=== PATIENT | female | born 1945 | race Caucasian/White ===

== ENCOUNTER 2017-02-01 02:56 | Emergency (ER) | payer MEDICARE ==
[~2017-02-01] VITALS: Ht 172.7 cm; Wt 78.1 kg
[~2017-02-01 02:56] MED LIST: AMLO5TAB2 PO; ATOR40TA78 PO; CLOP75TA22 PO; DOCU-30 PO; FOLI-17 PO; GABA100C8 PO; THIA100T6 PO; TRAM50TA2 PO
[2017-02-01] MEDS ORDERED: SODIUM CHLORIDE 0.9% 1,000 ML IV ONE (03:05)
[2017-02-01] MEDS ORDERED: ALBUTEROL/IPRATROPIUM 2.5MG/0.5MG, 3 ML ONE (03:12)
[2017-02-01] MEDS ORDERED: SODIUM CHLORIDE FLUSH 10ML SYR IVF ONE (03:30)
[2017-02-01] MEDS ORDERED: ALBUTEROL/IPRATROPIUM 2.5MG/0.5MG, 3 ML NPPB ONE (03:30)
[2017-02-01] MEDS ORDERED: methylPREDNISolone SOD SUCC 125 MG/2 ML IVP ONE (03:30)
[2017-02-01 03:33] LABS: ASPARTATE AMINO TRANSFERASE 11 U/L (15-37); BLOOD UREA NITROGEN 15 mg/dL (7-18)
[2017-02-01 03:41] LABS: IS PT STATUS REG ER OR PRE ER? YES
[2017-02-01 05:25] VITALS: BP 120/69
== END 2017-02-01 05:29 | disposition home or self-care (01) ==
LOC: ED 03:57
DX: J44.1 Chronic obstructive pulmonary disease with (acute) exacerbation (principal); R06.00 Dyspnea, unspecified; F17.200 Nicotine dependence, unspecified, uncomplicated; Z72.89 Other problems related to lifestyle; Z86.73 Personal history of transient ischemic attack (TIA), and cerebral infarction without residual deficits
CPT/HCPCS: 36415; 71010; 80053; 80307; 83880; 84484; 85025; 93005; 94640; 99285; J7620

== ENCOUNTER 2017-02-26 22:36 | Emergency (ER) | payer MEDICARE ==
[2017-03-02 10:39] LABS: DIFF TOTAL CELLS COUNTED 100 CELL DIFF
[2017-03-02 11:04] LABS: VERIFY COUNTS? YES
[2017-03-02 11:54] LABS: BLOOD UREA NITROGEN 20 mg/dL (7-18)
== END 2017-02-27 02:00 ==
LOC: ED 22:36
DX: R53.1 Weakness (principal); Z72.9 Problem related to lifestyle, unspecified; Z91.14 Patient's other noncompliance with medication regimen; R94.4 Abnormal results of kidney function studies
CPT/HCPCS: 36415; 80048; 80307; 82040; 85025; 99283; 99284

== ENCOUNTER 2017-03-24 13:36 | Emergency (ER) | payer MEDICARE, OTHER ==
[~2017-03-24] VITALS: Ht 167.6 cm; Wt 78.0 kg
[~2017-03-24 13:36] MED LIST changes: +GABA-826 PO; -GABA100C8 PO
[2017-03-24] MEDS ORDERED: HYDROcodone/APAP 5/325 TABLET ONE (15:27)
[2017-03-24] MEDS ORDERED: HYDROcodone/APAP 5/325 TABLET PO ONE (15:30)
[2017-03-24 15:34] VITALS: BP 130/71
== END 2017-03-24 15:45 | disposition home or self-care (01) ==
LOC: ED 14:17
DX: R07.89 Other chest pain (principal); M54.12 Radiculopathy, cervical region; J44.9 Chronic obstructive pulmonary disease, unspecified; I48.91 Unspecified atrial fibrillation; Z86.73 Personal history of transient ischemic attack (TIA), and cerebral infarction without residual deficits
CPT/HCPCS: 36415; 70450; 84484; 93005; 99285; J7512

== ENCOUNTER 2017-05-06 00:11 | Emergency (ER) | payer MEDICARE, MEDICAID ==
[~2017-05-06] VITALS: Ht 165.1 cm; Wt 80.0 kg
[2017-05-06] MEDS ORDERED: SODIUM CHLORIDE 0.9% 1,000ML IVBOLUS ONE (00:30)
[2017-05-06 01:16] LABS: HEMATOCRIT 34.8 % (34.6-47.8); HEMOGLOBIN 11.4 g/dL (11.7-16.4); WHITE BLOOD COUNT 11.7 x10^3/uL (3.4-10)
[2017-05-06 01:33] LABS: BLOOD UREA NITROGEN 28 mg/dL (7-18)
[2017-05-06 01:37] LABS: ASPARTATE AMINO TRANSFERASE 15 U/L (15-37)
[2017-05-06 01:38] LABS: ACETAMINOPHEN < 2 mcg/mL (10-30)
[2017-05-06 02:12] LABS: DAU SCREEN DISCLAIMER
[2017-05-06 02:21] LABS: PATH.CAST-FLAG NOT PRESENT; SPERM-FLAG NOT PRESENT; SRC-FLAG NOT PRESENT; XTAL-FLAG NOT PRESENT; YLC-FLAG NOT PRESENT
[2017-05-06 03:40] VITALS: BP 142/72
== END 2017-05-06 04:17 | disposition home or self-care (01) ==
LOC: ED 03:39
DX: R40.1 Stupor (principal); N30.00 Acute cystitis without hematuria; F15.10 Other stimulant abuse, uncomplicated; Z72.89 Other problems related to lifestyle; J44.9 Chronic obstructive pulmonary disease, unspecified; Z86.73 Personal history of transient ischemic attack (TIA), and cerebral infarction without residual deficits; Z96.89 Presence of other specified functional implants
CPT/HCPCS: 36415; 70450; 80053; 80307; 80329; 81001; 82140; 85025; 87086; 93005; 96360; 96361; 99285; J7030; G0480

== ENCOUNTER 2017-06-30 22:52 | Emergency (ER) | payer MEDICARE, MEDICAID ==
[~2017-06-30] VITALS: Ht 162.6 cm; Wt 68.0 kg
[~2017-06-30 22:52] MED LIST changes: -CLOP75TA22 PO; +CLOP75TA52 PO; +DOCU-131 PO; -DOCU-30 PO
[2017-07-01 03:39] VITALS: BP 141/60
== END 2017-07-01 03:42 | disposition home or self-care (01) ==
LOC: ED 23:59
DX: Z72.89 Other problems related to lifestyle (principal); J44.9 Chronic obstructive pulmonary disease, unspecified; Z86.73 Personal history of transient ischemic attack (TIA), and cerebral infarction without residual deficits; Z88.0 Allergy status to penicillin; Z88.6 Allergy status to analgesic agent; F17.200 Nicotine dependence, unspecified, uncomplicated
CPT/HCPCS: 93005; 99283

== ENCOUNTER 2017-07-01 05:12 | Emergency (ER) | payer MEDICARE, MEDICAID ==
[~2017-07-01] VITALS: Ht 160 cm; Wt 80.0 kg
[2017-07-01 05:21] VITALS: BP 129/54
== END 2017-07-01 06:07 | disposition home or self-care (01) ==
LOC: ED 05:25
DX: F10.220 Alcohol dependence with intoxication, uncomplicated (principal); Z72.89 Other problems related to lifestyle; F17.200 Nicotine dependence, unspecified, uncomplicated
CPT/HCPCS: 99283

== ENCOUNTER 2017-10-12 12:38 | Emergency (ER) | payer MEDICARE, MEDICAID ==
[2017-10-12] MEDS ORDERED: PLEASE ENTER HEIGHT AND WEIGHT MC SCH (13:30)
[2017-10-12] MEDS ORDERED: ALBUTEROL/IPRATROPIUM 2.5MG/0.5MG, 3 ML NEB ONE (13:30)
[2017-10-12 13:44] LABS: BASOPHILS # (AUTO) 0.04 x10^3/uL (0-0.1); BASOPHILS % (AUTO) 1 % (0-1); EOSINOPHILS # (AUTO) 0.15 x10^3/uL (0-0.4); EOSINOPHILS % (AUTO) 2 % (1-7); LYMPHOCYTES # (AUTO) 1.56 x10^3/uL (1-3.4); LYMPHOCYTES % (AUTO) 22 % (22-44); MD NO; MEAN CORPUSCULAR HEMOGLOBIN 28.1 pg (27.0-34.8); MEAN CORPUSCULAR HGB CONC 32.4 g/dL (32.4-35.8); MEAN CORPUSCULAR VOLUME 86.8 fL (80-100); MEAN PLATELET VOLUME 8.5 fL (7.4-10.4); MONOCYTES # (AUTO) 0.44 x10^3/uL (0.2-0.8); MONOCYTES % (AUTO) 6 % (2-9); NEUTROPHILS # (AUTO) 4.87 x10^3/uL (1.8-6.8); NEUTROPHILS % (AUTO) 69 % (42-75); PLATELET COUNT 255 x10^3/uL (130-400); RED CELL DISTRIBUTION WIDTH 16.4 % (9.6-15.2)
[2017-10-12 13:56] LABS: ALANINE AMINOTRANSFERASE 10 U/L (12-78); ANION GAP 9 mmol/L (5-15); CALCIUM 8.7 mg/dL (8.5-10.1); CHLORIDE 109 mmol/L (98-107); CREATININE 1.49 mg/dL (0.55-1.02)
[2017-10-12 14:00] LABS: ALKALINE PHOSPHATASE 79 U/L (45-117); BILIRUBIN,TOTAL 0.2 mg/dL (0.2-1.0); TROPONIN I < 0.015 ng/mL (0.000-0.045)
[2017-10-12] MEDS ORDERED: ALBUTEROL/IPRATROPIUM 2.5MG/0.5MG, 3 ML ONE (14:26)
[2017-10-12 14:34] LABS: MICROSCOPIC AUTO
[2017-10-12 14:37] LABS: CULTURE INDICATED? YES
[2017-10-12] MEDS ORDERED: CEFDINIR 300 MG CAPSULE ONE (14:38)
[2017-10-12 15:05] LABS: AMPHETAMINE SCREEN, URINE Negative (Negative); BARBITURATE SCREEN, URINE Negative (Negative); BENZODIAZEPINE SCREEN, URINE Negative (Negative); CANNABINOID SCREEN, URINE Negative (Negative); COCAINE SCREEN, URINE Negative (Negative); METHADONE SCREEN, URINE Negative (Negative); OPIATE SCREEN, URINE Negative (Negative)
[2017-10-12 15:24] VITALS: BP 151/79
[2017-10-12] MEDS ORDERED: CEFDINIR 300 MG CAPSULE PO SCH (21:00)
== END 2017-10-12 15:26 | disposition home or self-care (01) ==
LOC: ED 15:24
DX: J15.9 Unspecified bacterial pneumonia (principal); B96.89 Other specified bacterial agents as the cause of diseases classified elsewhere; I50.9 Heart failure, unspecified; F17.200 Nicotine dependence, unspecified, uncomplicated
CPT/HCPCS: 36415; 71045; 80053; 80307; 81001; 83880; 84484; 85025; 87086; 93005; 94640; 99285; J7620

== ENCOUNTER 2018-01-18 05:52 | Emergency (ER) | payer MEDICARE ==
[~2018-01-18] VITALS: Ht 165.1 cm; Wt 75.6 kg
[2018-01-18 07:06] LABS: BASOPHILS # (AUTO) 0.02 x10^3/uL (0-0.1); BASOPHILS % (AUTO) 0 % (0-1); EOSINOPHILS % (AUTO) 1 % (1-7); LYMPHOCYTES % (AUTO) 13 % (22-44); MD NO; MEAN CORPUSCULAR HEMOGLOBIN 28.2 pg (27.0-34.8); MEAN CORPUSCULAR HGB CONC 32.6 g/dL (32.4-35.8); MEAN CORPUSCULAR VOLUME 86.5 fL (80-100); MEAN PLATELET VOLUME 8.6 fL (7.4-10.4); MONOCYTES # (AUTO) 0.62 x10^3/uL (0.2-0.8); MONOCYTES % (AUTO) 6 % (2-9); NEUTROPHILS # (AUTO) 8.27 x10^3/uL (1.8-6.8); NEUTROPHILS % (AUTO) 80 % (42-75); PLATELET COUNT 232 x10^3/uL (130-400); RED BLOOD COUNT 4.52 x10^6/uL (3.82-5.3); RED CELL DISTRIBUTION WIDTH 17.4 % (9.6-15.2)
[2018-01-18 07:18] LABS: ALBUMIN 3.4 g/dL (3.4-5.0); ANION GAP 11 mmol/L (5-15); CALCIUM 9.1 mg/dL (8.5-10.1); CHLORIDE 109 mmol/L (98-107)
[2018-01-18 07:21] LABS: TROPONIN I < 0.015 ng/mL (0.000-0.045)
[2018-01-18 07:49] VITALS: BP 126/65
== END 2018-01-18 09:21 | disposition home or self-care (01) ==
LOC: ED 07:03
DX: N18.9 Chronic kidney disease, unspecified (principal); R06.00 Dyspnea, unspecified; I13.0 Hypertensive heart and chronic kidney disease with heart failure and stage 1 through stage 4 chronic kidney disease, or unspecified chronic kidney disease; I50.9 Heart failure, unspecified; I48.91 Unspecified atrial fibrillation; J44.9 Chronic obstructive pulmonary disease, unspecified; F17.200 Nicotine dependence, unspecified, uncomplicated; Z90.49 Acquired absence of other specified parts of digestive tract; Z86.73 Personal history of transient ischemic attack (TIA), and cerebral infarction without residual deficits
CPT/HCPCS: 36415; 71045; 80048; 82040; 83880; 84484; 85025; 93005; 99285

== ENCOUNTER 2018-03-26 17:03 | Emergency (ER) | payer MEDICARE ==
[~2018-03-26] VITALS: Ht 165.1 cm; Wt 87.0 kg
[2018-03-26 17:07] VITALS: BP 122/79
[2018-03-26 18:11] LABS: BASOPHILS # (AUTO) 0.03 x10^3/uL (0-0.1); BASOPHILS % (AUTO) 0 % (0-1); EOSINOPHILS # (AUTO) 0.19 x10^3/uL (0-0.4); EOSINOPHILS % (AUTO) 2 % (1-7); LYMPHOCYTES # (AUTO) 1.41 x10^3/uL (1-3.4); LYMPHOCYTES % (AUTO) 16 % (22-44); MD NO; MEAN CORPUSCULAR HEMOGLOBIN 28.7 pg (27.0-34.8); MEAN CORPUSCULAR HGB CONC 32.8 g/dL (32.4-35.8); MEAN CORPUSCULAR VOLUME 87.6 fL (80-100); MONOCYTES # (AUTO) 0.65 x10^3/uL (0.2-0.8); MONOCYTES % (AUTO) 7 % (2-9); NEUTROPHILS # (AUTO) 6.66 x10^3/uL (1.8-6.8); NEUTROPHILS % (AUTO) 75 % (42-75); PLATELET COUNT 274 x10^3/uL (130-400); RED BLOOD COUNT 4.19 x10^6/uL (3.82-5.3); RED CELL DISTRIBUTION WIDTH 15.1 % (9.6-15.2)
[2018-03-26 18:22] LABS: ALANINE AMINOTRANSFERASE 14 U/L (12-78); ANION GAP 7 mmol/L (5-15); CHLORIDE 113 mmol/L (98-107); CREATININE 1.68 mg/dL (0.55-1.02)
[2018-03-26 18:27] LABS: ALKALINE PHOSPHATASE 89 U/L (45-117); BILIRUBIN,TOTAL 0.2 mg/dL (0.2-1.0); TOTAL PROTEIN 7.5 g/dL (6.4-8.2); TROPONIN I < 0.015 ng/mL (0.000-0.045)
== END 2018-03-26 20:17 | disposition home or self-care (01) ==
LOC: ED 18:42
DX: R53.1 Weakness (principal); R20.0 Anesthesia of skin; I11.0 Hypertensive heart disease with heart failure; I50.9 Heart failure, unspecified; J44.9 Chronic obstructive pulmonary disease, unspecified; I48.91 Unspecified atrial fibrillation; F17.200 Nicotine dependence, unspecified, uncomplicated; Z86.73 Personal history of transient ischemic attack (TIA), and cerebral infarction without residual deficits; Z90.710 Acquired absence of both cervix and uterus; Z95.0 Presence of cardiac pacemaker; Z90.89 Acquired absence of other organs
CPT/HCPCS: 36415; 70450; 71045; 80053; 83605; 84484; 85025; 93005; 99285

== ENCOUNTER 2018-04-05 18:39 | Emergency (ER) | payer MEDICARE ==
[~2018-04-05] VITALS: Ht 165.1 cm; Wt 66.0 kg
[2018-04-05 19:55] LABS: BASOPHILS # (AUTO) 0.03 x10^3/uL (0-0.1); BASOPHILS % (AUTO) 0 % (0-1); EOSINOPHILS # (AUTO) 0.12 x10^3/uL (0-0.4); EOSINOPHILS % (AUTO) 1 % (1-7); LYMPHOCYTES # (AUTO) 0.84 x10^3/uL (1-3.4); LYMPHOCYTES % (AUTO) 9 % (22-44); MD NO; MEAN CORPUSCULAR HEMOGLOBIN 28.9 pg (27.0-34.8); MEAN CORPUSCULAR HGB CONC 33.5 g/dL (32.4-35.8); MEAN CORPUSCULAR VOLUME 86.2 fL (80-100); MEAN PLATELET VOLUME 8.3 fL (7.4-10.4); MONOCYTES # (AUTO) 0.52 x10^3/uL (0.2-0.8); MONOCYTES % (AUTO) 6 % (2-9); NEUTROPHILS # (AUTO) 7.81 x10^3/uL (1.8-6.8); NEUTROPHILS % (AUTO) 84 % (42-75); PLATELET COUNT 232 x10^3/uL (130-400); RED BLOOD COUNT 3.95 x10^6/uL (3.82-5.3); RED CELL DISTRIBUTION WIDTH 15.5 % (9.6-15.2)
[2018-04-05 20:04] LABS: ALBUMIN 3.1 g/dL (3.4-5.0); ANION GAP 9 mmol/L (5-15); CALCIUM 8.8 mg/dL (8.5-10.1); CHLORIDE 115 mmol/L (98-107)
[2018-04-05 20:07] LABS: ALANINE AMINOTRANSFERASE 13 U/L (12-78); ALKALINE PHOSPHATASE 90 U/L (45-117); BILIRUBIN,TOTAL 0.4 mg/dL (0.2-1.0); CREATININE 1.89 mg/dL (0.55-1.02); TOTAL PROTEIN 7.4 g/dL (6.4-8.2)
[2018-04-05 20:12] LABS: TROPONIN I < 0.015 ng/mL (0.000-0.045)
[2018-04-05] MEDS ORDERED: SODIUM CHLORIDE 0.9% 1,000 ML IV ONE (20:30)
[2018-04-05] MEDS ORDERED: SODIUM CHLORIDE 0.9% 1,000ML IVBOLUS ONE (20:30)
[2018-04-05 20:31] VITALS: BP 148/62
== END 2018-04-05 22:15 | disposition home or self-care (01) ==
LOC: ED 20:58
DX: R07.89 Other chest pain (principal); G81.92 Hemiplegia, unspecified affecting left dominant side; Z76.5 Malingerer [conscious simulation]
CPT/HCPCS: 36415; 70450; 71045; 80053; 84484; 85025; 93005; 99285

== ENCOUNTER 2018-06-05 07:14 | Emergency (ER) | payer MEDICARE ==
[~2018-06-05] VITALS: Ht 165.1 cm; Wt 91.0 kg
[2018-06-05 07:14] VITALS: BP 130/76
[~2018-06-05 07:14] MED LIST changes: -AMLO5TAB2 PO; +AMLO5TAB7 PO; -THIA100T6 PO; +THIA100T67 PO
[2018-06-05 08:16] LABS: BASOPHILS # (AUTO) 0.04 x10^3/uL (0-0.1); BASOPHILS % (AUTO) 1 % (0-1); EOSINOPHILS # (AUTO) 0.16 x10^3/uL (0-0.4); EOSINOPHILS % (AUTO) 2 % (1-7); LYMPHOCYTES # (AUTO) 1.22 x10^3/uL (1-3.4); LYMPHOCYTES % (AUTO) 17 % (22-44); MD NO; MEAN CORPUSCULAR HEMOGLOBIN 29.1 pg (27.0-34.8); MEAN CORPUSCULAR HGB CONC 32.9 g/dL (32.4-35.8); MEAN CORPUSCULAR VOLUME 88.5 fL (80-100); MEAN PLATELET VOLUME 8.4 fL (7.4-10.4); MONOCYTES # (AUTO) 0.56 x10^3/uL (0.2-0.8); MONOCYTES % (AUTO) 8 % (2-9); NEUTROPHILS # (AUTO) 5.35 x10^3/uL (1.8-6.8); NEUTROPHILS % (AUTO) 73 % (42-75); PLATELET COUNT 234 x10^3/uL (130-400); RED BLOOD COUNT 4.11 x10^6/uL (3.82-5.3); RED CELL DISTRIBUTION WIDTH 16.9 % (9.6-15.2)
[2018-06-05 08:37] LABS: ALANINE AMINOTRANSFERASE 11 U/L (12-78); ANION GAP 6 mmol/L (5-15); CALCIUM 8.9 mg/dL (8.5-10.1); CHLORIDE 111 mmol/L (98-107); CREATININE 2.01 mg/dL (0.55-1.02)
[2018-06-05 08:39] LABS: ALKALINE PHOSPHATASE 95 U/L (45-117); BILIRUBIN,TOTAL 0.2 mg/dL (0.2-1.0); TOTAL PROTEIN 7.4 g/dL (6.4-8.2)
[2018-06-05 09:01] LABS: INTERNATIONAL NORMALIZED RATIO 0.94 (0.93-1.1); PROTHROMBIN TIME 9.8 Seconds (9.6-11.5)
[2018-06-05 09:31] LABS: AMPHETAMINE SCREEN, URINE Negative (Negative); BARBITURATE SCREEN, URINE Negative (Negative); BENZODIAZEPINE SCREEN, URINE Negative (Negative); CANNABINOID SCREEN, URINE Negative (Negative); COCAINE SCREEN, URINE Negative (Negative); METHADONE SCREEN, URINE Negative (Negative); OPIATE SCREEN, URINE Negative (Negative)
[2018-06-05 09:32] LABS: CULTURE INDICATED? YES; MICROSCOPIC INDICATED
== END 2018-06-05 10:26 | disposition home or self-care (01) ==
LOC: ED 09:21
DX: G89.11 Acute pain due to trauma (principal); M51.34 Other intervertebral disc degeneration, thoracic region; M51.36 Other intervertebral disc degeneration, lumbar region; I11.0 Hypertensive heart disease with heart failure; I50.9 Heart failure, unspecified; J44.9 Chronic obstructive pulmonary disease, unspecified; I48.91 Unspecified atrial fibrillation; Z86.73 Personal history of transient ischemic attack (TIA), and cerebral infarction without residual deficits; F17.200 Nicotine dependence, unspecified, uncomplicated; Z95.0 Presence of cardiac pacemaker; Z90.710 Acquired absence of both cervix and uterus; Z90.89 Acquired absence of other organs; W19.XXXA Unspecified fall, initial encounter; Y93.89 Activity, other specified; Y92.410 Unspecified street and highway as the place of occurrence of the external cause; Y99.8 Other external cause status
CPT/HCPCS: 36415; 70450; 71045; 72125; 72128; 72131; 80053; 80307; 81001; 82140; 85025; 85610; 85730; 87086; 99285

== ENCOUNTER 2018-07-11 13:54 | Emergency (ER) | payer MEDICARE ==
[~2018-07-11] VITALS: Ht 152.4 cm; Wt 79.0 kg
[2018-07-11 15:04] LABS: BASOPHILS # (AUTO) 0.02 x10^3/uL (0-0.1); BASOPHILS % (AUTO) 0 % (0-1); EOSINOPHILS % (AUTO) 3 % (1-7); LYMPHOCYTES # (AUTO) 1.22 x10^3/uL (1-3.4); LYMPHOCYTES % (AUTO) 19 % (22-44); MD NO; MEAN CORPUSCULAR HEMOGLOBIN 29.7 pg (27.0-34.8); MEAN CORPUSCULAR HGB CONC 33.1 g/dL (32.4-35.8); MEAN CORPUSCULAR VOLUME 89.9 fL (80-100); MEAN PLATELET VOLUME 8.7 fL (7.4-10.4); MONOCYTES # (AUTO) 0.54 x10^3/uL (0.2-0.8); MONOCYTES % (AUTO) 8 % (2-9); NEUTROPHILS # (AUTO) 4.52 x10^3/uL (1.8-6.8); NEUTROPHILS % (AUTO) 70 % (42-75); PLATELET COUNT 210 x10^3/uL (130-400); RED BLOOD COUNT 3.92 x10^6/uL (3.82-5.3)
[2018-07-11 15:12] LABS: ALBUMIN 3.4 g/dL (3.4-5.0); ANION GAP 7 mmol/L (5-15); CALCIUM 9.1 mg/dL (8.5-10.1); CHLORIDE 113 mmol/L (98-107)
[2018-07-11 15:18] LABS: CREATININE 1.76 mg/dL (0.55-1.02); TROPONIN I < 0.015 ng/mL (0.000-0.045)
[2018-07-11 17:03] VITALS: BP 166/58
== END 2018-07-11 17:05 | disposition home or self-care (01) ==
LOC: ED 15:00
DX: N28.9 Disorder of kidney and ureter, unspecified (principal); R09.1 Pleurisy; R07.89 Other chest pain; I11.0 Hypertensive heart disease with heart failure; I51.9 Heart disease, unspecified; J44.9 Chronic obstructive pulmonary disease, unspecified; Z86.73 Personal history of transient ischemic attack (TIA), and cerebral infarction without residual deficits; Z87.01 Personal history of pneumonia (recurrent); Z95.0 Presence of cardiac pacemaker; Z90.710 Acquired absence of both cervix and uterus; Z90.49 Acquired absence of other specified parts of digestive tract
CPT/HCPCS: 36415; 71045; 80048; 82040; 83880; 84484; 85025; 93005; 99285

== ENCOUNTER 2018-07-21 22:30 | Emergency (ER) | payer MEDICARE ==
[~2018-07-21] VITALS: Ht 162.6 cm; Wt 73.0 kg
[2018-07-21] MEDS ORDERED: MAALOX/HYOSCYAMINE/LIDOCAINE 45 ML BTL ONE (22:56)
[2018-07-21] MEDS ORDERED: MAALOX/HYOSCYAMINE/LIDOCAINE 45 ML BTL PO ONE (23:00)
[2018-07-21 23:21] LABS: BASOPHILS # (AUTO) 0.04 x10^3/uL (0-0.1); BASOPHILS % (AUTO) 1 % (0-1); EOSINOPHILS # (AUTO) 0.21 x10^3/uL (0-0.4); EOSINOPHILS % (AUTO) 3 % (1-7); LYMPHOCYTES # (AUTO) 1.34 x10^3/uL (1-3.4); LYMPHOCYTES % (AUTO) 19 % (22-44); MD NO; MEAN CORPUSCULAR HEMOGLOBIN 29.9 pg (27.0-34.8); MEAN CORPUSCULAR HGB CONC 32.8 g/dL (32.4-35.8); MEAN PLATELET VOLUME 8.5 fL (7.4-10.4); MONOCYTES # (AUTO) 0.61 x10^3/uL (0.2-0.8); MONOCYTES % (AUTO) 9 % (2-9); NEUTROPHILS # (AUTO) 4.77 x10^3/uL (1.8-6.8); NEUTROPHILS % (AUTO) 69 % (42-75); PLATELET COUNT 231 x10^3/uL (130-400); RED BLOOD COUNT 3.81 x10^6/uL (3.82-5.3); RED CELL DISTRIBUTION WIDTH 16.9 % (9.6-15.2)
[2018-07-21 23:27] LABS: ALANINE AMINOTRANSFERASE 14 U/L (12-78); ALBUMIN 3.3 g/dL (3.4-5.0); ANION GAP 12 mmol/L (5-15); CHLORIDE 112 mmol/L (98-107); CREATININE 1.95 mg/dL (0.55-1.02)
[2018-07-21 23:31] LABS: ALKALINE PHOSPHATASE 75 U/L (45-117); BILIRUBIN,TOTAL 0.2 mg/dL (0.2-1.0); TOTAL PROTEIN 7.6 g/dL (6.4-8.2); TROPONIN I < 0.015 ng/mL (0.000-0.045)
[2018-07-22 00:45] VITALS: BP 134/51
== END 2018-07-22 01:19 | disposition home or self-care (01) ==
LOC: ED 22:39
DX: B37.2 Candidiasis of skin and nail (principal); R10.13 Epigastric pain; I48.91 Unspecified atrial fibrillation; J44.9 Chronic obstructive pulmonary disease, unspecified; E78.5 Hyperlipidemia, unspecified; I11.0 Hypertensive heart disease with heart failure; I50.9 Heart failure, unspecified; E11.9 Type 2 diabetes mellitus without complications; F17.200 Nicotine dependence, unspecified, uncomplicated; Z90.49 Acquired absence of other specified parts of digestive tract; Z90.710 Acquired absence of both cervix and uterus; Z86.73 Personal history of transient ischemic attack (TIA), and cerebral infarction without residual deficits; Z95.0 Presence of cardiac pacemaker
CPT/HCPCS: 36415; 71045; 74176; 80053; 83690; 84484; 85025; 93005; 99285

== ENCOUNTER 2018-10-12 17:42 | Emergency (ER) | payer MEDICARE ==
[~2018-10-12 17:42] MED LIST changes: +AMLO-150 PO; -AMLO5TAB7 PO
--- NOTE | 2018-10-12 17:42 | NUR ---
BIB EMS after being found laying on the ground outside of the [place], next to her wheelchair. Pt not answering questions and not making eye contact at this time. Pt asked where her stuff was when EMS exited the ER room prior to coming back in with several bags and a wheelchair. EKG done upon arrival to ED.
--- NOTE | 2018-10-12 18:32 | NUR ---
TASK RN: RN in to assist ERP with evaluation of pt as she had been difficult to assess initially. Pt now verbal and stating that she will only talk to this RN. Pt advised this RN "I don't know why they brought me here. There's nothing wrong with me" and asking this RN to assist her out of the bed and to put on her clothing. ERP notified.
--- NOTE | 2018-10-12 18:39 | NUR ---
ERP back to pt bedside and pt repeats her request to leave and denies any complaint to ERP historic sites registrar. Per ERP, pt is ok to leave.
--- NOTE | 2018-10-12 19:01 | NUR ---
Pt given taxi cab voucher for safe discharge, pt with numerous bags and wheelchair, also taken to lobby for pt.
[2018-10-12 19:02] VITALS: BP 136/74
== END 2018-10-12 19:04 | disposition home or self-care (01) ==
LOC: ED 18:58
DX: R40.1 Stupor (principal); I48.91 Unspecified atrial fibrillation; J44.9 Chronic obstructive pulmonary disease, unspecified; I11.0 Hypertensive heart disease with heart failure; I50.9 Heart failure, unspecified; Z59.0 Homelessness; Z72.9 Problem related to lifestyle, unspecified; Z90.49 Acquired absence of other specified parts of digestive tract; Z95.0 Presence of cardiac pacemaker; Z86.73 Personal history of transient ischemic attack (TIA), and cerebral infarction without residual deficits
CPT/HCPCS: 93005; 99283

== ENCOUNTER 2018-10-14 15:32 | Inpatient (IN) | payer MEDICARE, MEDICAID ==
[~2018-10-14] VITALS: Ht 165.1 cm; Wt 73.0 kg
[2018-10-14] MEDS ORDERED: SODIUM CHLORIDE FLUSH 10ML SYR IVF ONE (16:30)
[2018-10-14 16:33] LABS: BASOPHILS # (AUTO) 0.03 x10^3/uL (0-0.1); BASOPHILS % (AUTO) 0 % (0-1); EOSINOPHILS # (AUTO) 0.18 x10^3/uL (0-0.4); EOSINOPHILS % (AUTO) 2 % (1-7); LYMPHOCYTES # (AUTO) 1.19 x10^3/uL (1-3.4); LYMPHOCYTES % (AUTO) 14 % (22-44); MD NO; MEAN CORPUSCULAR HEMOGLOBIN 30.8 pg (27.0-34.8); MEAN CORPUSCULAR HGB CONC 33.6 g/dL (32.4-35.8); MEAN CORPUSCULAR VOLUME 91.6 fL (80-100); MEAN PLATELET VOLUME 8.6 fL (7.4-10.4); MONOCYTES # (AUTO) 0.69 x10^3/uL (0.2-0.8); MONOCYTES % (AUTO) 8 % (2-9); NEUTROPHILS # (AUTO) 6.49 x10^3/uL (1.8-6.8); NEUTROPHILS % (AUTO) 76 % (42-75); PLATELET COUNT 207 x10^3/uL (130-400); RED CELL DISTRIBUTION WIDTH 17.9 % (9.6-15.2)
[2018-10-14 16:43] LABS: ALBUMIN 3.3 g/dL (3.4-5.0); ANION GAP 7 mmol/L (5-15); CALCIUM 8.6 mg/dL (8.5-10.1); CHLORIDE 107 mmol/L (98-107); CREATININE 1.88 mg/dL (0.55-1.02)
[2018-10-14 16:46] LABS: TROPONIN I < 0.015 ng/mL (0.000-0.045)
--- NOTE | 2018-10-14 17:53 | NUR ---
Pt in CT scan at this time.
[2018-10-14] MEDS ORDERED: OMNIPAQUE 350 MG/ML, 100ML BOTTLE ONE (18:11)
--- NOTE | 2018-10-14 18:13 | NUR ---
Pt back from CT, resting in bed with eyes closed, resp even and unlabored, NADN.
--- NOTE | 2018-10-14 18:55 | NUR ---
REPORT FROM SH[facility] GEORGE. PT RESTING COMFORTABLY IN BED, ON CARDIAC AND VS MONITORING.
[2018-10-14] MEDS ORDERED: ASPIRIN 81 MG TABLET CHEW PO ONE (19:30)
--- NOTE | 2018-10-14 19:36 | NUR ---
PT TO BE ADMITTED. PT CONTINUES TO REST COMFORTABLY IN BED, NO S/SX OF DISCOMFORT. VSS. PT CONTINUES ON MONITOR. WILL MONITOR.
--- NOTE | 2018-10-14 19:38 | NUR ---
REPORT TO TRAV GEORGE. PT TO GO TO ROOM.
--- NOTE | 2018-10-14 19:39 | NUR ---
PT HAS ALLERGY TO ASPIRIN, ASPIRIN D/C'D.
--- NOTE | 2018-10-14 19:45 | NUR ---
[facility] TO BEDSIDE.
[2018-10-14] MEDS ORDERED: morphine SULFATE 10 MG/ML, 1ML IVPush PRN (20:30)
[2018-10-14] MEDS ORDERED: ONDANSETRON 2MG/ML, 2ML IVPush PRN (20:30)
[2018-10-14] MEDS ORDERED: LABETALOL 5MG/ML, 20ML IVPush PRN (20:30)
[2018-10-14] MEDS ORDERED: hydrALAzine 20 MG/ML, 1ML IVPush PRN (20:30)
[2018-10-14] MEDS ORDERED: ONDANSETRON ODT 4 MG PO PRN (20:30)
[2018-10-14] MEDS ORDERED: BISACODYL 10 MG SUPP PR PRN (20:30)
[2018-10-14] MEDS ORDERED: POLYETHYLENE GLYCOL 17 GM PACKET PO PRN (20:30)
[2018-10-14] MEDS ORDERED: PROMETHAZINE 25 MG/ML, 1ML IM PRN (20:30)
[2018-10-14 20:33] VITALS: BP 115/82
[2018-10-14 20:38] LABS: FREE T4 (FREE THYROXINE) 0.85 ng/dL (0.76-1.46); HEMOGLOBIN A1C 5.5 % (4.2-6.3); THYROID STIMULATING HORMONE 1.86 mIU/L (0.358-3.740)
[2018-10-14] MEDS: SODIUM CHLORIDE 0.9% 1,000 ML IV SCH (21:10)
[2018-10-14] MEDS: HEPARIN 5,000 UNITS/ML, 1ML SQ SCH (21:12)
[2018-10-15 00:47] VITALS: BP 98/59
[2018-10-15 01:06] LABS: TROPONIN I < 0.015 ng/mL (0.000-0.045)
[2018-10-15 02:39] VITALS: BP 102/57
[2018-10-15] MEDS: HEPARIN 5,000 UNITS/ML, 1ML SQ SCH ×3 (05:17→20:51)
[2018-10-15 06:32] LABS: ANION GAP 10 mmol/L (5-15); CALCIUM 8.1 mg/dL (8.5-10.1); CHLORIDE 111 mmol/L (98-107); CREATININE 1.76 mg/dL (0.55-1.02)
[2018-10-15 06:33] LABS: ALANINE AMINOTRANSFERASE 15 U/L (12-78); ALBUMIN 2.5 g/dL (3.4-5.0); TRIGLYCERIDES 119 mg/dL (50-200); VLDL CHOLESTEROL 24 mg/dL (0-25)
[2018-10-15 06:35] LABS: MEAN CORPUSCULAR HEMOGLOBIN 30.3 pg (27.0-34.8); MEAN CORPUSCULAR HGB CONC 32.9 g/dL (32.4-35.8); PLATELET COUNT 160 x10^3/uL (130-400); RED BLOOD COUNT 3.34 x10^6/uL (3.82-5.3); RED CELL DISTRIBUTION WIDTH 18.7 % (9.6-15.2)
[2018-10-15 06:36] LABS: BASOPHILS # (AUTO) 0.02 x10^3/uL (0-0.1); BASOPHILS % (AUTO) 0 % (0-1); EOSINOPHILS # (AUTO) 0.19 x10^3/uL (0-0.4); EOSINOPHILS % (AUTO) 3 % (1-7); LYMPHOCYTES # (AUTO) 1.49 x10^3/uL (1-3.4); LYMPHOCYTES % (AUTO) 21 % (22-44); MD SCAN; MONOCYTES # (AUTO) 0.64 x10^3/uL (0.2-0.8); MONOCYTES % (AUTO) 9 % (2-9); NEUTROPHILS # (AUTO) 4.87 x10^3/uL (1.8-6.8); NEUTROPHILS % (AUTO) 68 % (42-75)
[2018-10-15 06:37] LABS: ALKALINE PHOSPHATASE 71 U/L (45-117); BILIRUBIN,TOTAL 0.3 mg/dL (0.2-1.0); CHOL/HDL RATIO 3.8; CHOLESTEROL, TOTAL 149 mg/dL (140-239); HDL CHOL % 26 % (28-40); HDL CHOLESTEROL (DIRECT) 39 mg/dL (40-60); TOTAL PROTEIN 6.1 g/dL (6.4-8.2); TROPONIN I < 0.015 ng/mL (0.000-0.045)
[2018-10-15 07:28] LABS: LDL CHOLESTEROL,CALCULATED 87 mg/dL (54-169); LDL/HDL RATIO 2.2 (0.5-3.0)
[2018-10-15] MEDS: SENNA/DOCUSATE TABLET PO SCH (07:28)
[2018-10-15 08:16] VITALS: BP 129/75
[2018-10-15] MEDS ORDERED: REGADENOSON 0.4 MG/5 ML SYRINGE ONE (09:17)
[2018-10-15] MEDS: SODIUM CHLORIDE 0.9% 1,000 ML IV SCH (11:00)
[2018-10-15 13:14] VITALS: BP 130/76
[2018-10-15] MEDS: OXYcodone IR 5MG TABLET PO PRN (16:36)
[2018-10-15 19:24] VITALS: BP 133/69
[2018-10-16] VITALS (7 sets, daily range): BP systolic 118–167; BP diastolic 61–75
[2018-10-16] MEDS: HEPARIN 5,000 UNITS/ML, 1ML SQ SCH ×3 (04:51→20:22)
[2018-10-16 05:03] LABS: MICROSCOPIC AUTO
[2018-10-16 05:17] LABS: CULTURE INDICATED? YES
[2018-10-16] MEDS: SENNA/DOCUSATE TABLET PO SCH (08:54)
[2018-10-16] MEDS: OXYcodone IR 5MG TABLET PO PRN ×2 (09:02→14:50)
[2018-10-16 09:52] LABS: ANION GAP 9 mmol/L (5-15); CALCIUM 8.8 mg/dL (8.5-10.1); CHLORIDE 108 mmol/L (98-107); CREATININE 1.76 mg/dL (0.55-1.02)
[2018-10-16] MEDS: AMLODIPINE 5 MG TABLET PO SCH (14:50)
[2018-10-16 15:48] LABS: PROTEIN/CREATININE RATIO,URINE < 155 (0-200); TOTAL PROTEIN,URINE RANDOM < 5 mg/dL (0-12)
[2018-10-17 00:09] VITALS: BP 142/80
[2018-10-17] MEDS: HEPARIN 5,000 UNITS/ML, 1ML SQ SCH (04:40)
[2018-10-17 05:49] LABS: BASOPHILS # (AUTO) 0.02 x10^3/uL (0-0.1); BASOPHILS % (AUTO) 0 % (0-1); EOSINOPHILS # (AUTO) 0.19 x10^3/uL (0-0.4); EOSINOPHILS % (AUTO) 3 % (1-7); LYMPHOCYTES # (AUTO) 1.25 x10^3/uL (1-3.4); LYMPHOCYTES % (AUTO) 22 % (22-44); MD NO; MEAN CORPUSCULAR HEMOGLOBIN 30.9 pg (27.0-34.8); MEAN CORPUSCULAR HGB CONC 33.2 g/dL (32.4-35.8); MEAN CORPUSCULAR VOLUME 92.9 fL (80-100); MEAN PLATELET VOLUME 9.3 fL (7.4-10.4); MONOCYTES # (AUTO) 0.49 x10^3/uL (0.2-0.8); MONOCYTES % (AUTO) 9 % (2-9); NEUTROPHILS # (AUTO) 3.74 x10^3/uL (1.8-6.8); NEUTROPHILS % (AUTO) 66 % (42-75); PLATELET COUNT 188 x10^3/uL (130-400); RED BLOOD COUNT 3.42 x10^6/uL (3.82-5.3); RED CELL DISTRIBUTION WIDTH 18.3 % (9.6-15.2)
[2018-10-17 05:52] LABS: ANION GAP 8 mmol/L (5-15); CALCIUM 8.9 mg/dL (8.5-10.1); CHLORIDE 111 mmol/L (98-107); CREATININE 1.67 mg/dL (0.55-1.02)
[2018-10-17 07:00] VITALS: BP 152/71
[2018-10-17] MEDS: AMLODIPINE 5 MG TABLET PO SCH (08:11)
[2018-10-17] MEDS: SENNA/DOCUSATE TABLET PO SCH (08:12)
[2018-10-17] MEDS ORDERED: HYDR-3342 PO (10:57)
[2018-10-17] MEDS ORDERED: AMLO-150 PO (10:57)
== END 2018-10-17 11:41 | disposition left against medical advice (07) | DRG 302 ==
LOC: ED 16:57 → OBSVTOIN 19:09 → EDIP 19:09 → INTOOBSV 19:09 → 5SO 20:06
PROVIDERS: ADMIT Internal Medicine; ATTEND Internal Medicine
DX: I25.10 Atherosclerotic heart disease of native coronary artery without angina pectoris (principal); R53.2 Functional quadriplegia; I13.0 Hypertensive heart and chronic kidney disease with heart failure and stage 1 through stage 4 chronic kidney disease, or unspecified chronic kidney disease; N18.3 Chronic kidney disease, stage 3 (moderate); M48.02 Spinal stenosis, cervical region; N83.201 Unspecified ovarian cyst, right side; N83.202 Unspecified ovarian cyst, left side; M50.31 Other cervical disc degeneration, high cervical region; E53.8 Deficiency of other specified B group vitamins; F17.210 Nicotine dependence, cigarettes, uncomplicated; H91.90 Unspecified hearing loss, unspecified ear; I48.91 Unspecified atrial fibrillation; I50.9 Heart failure, unspecified; J44.9 Chronic obstructive pulmonary disease, unspecified; F10.129 Alcohol abuse with intoxication, unspecified; R47.81 Slurred speech; R53.81 Other malaise; R91.1 Solitary pulmonary nodule; Z53.21 Procedure and treatment not carried out due to patient leaving prior to being seen by health care provider; K44.9 Diaphragmatic hernia without obstruction or gangrene; K57.30 Diverticulosis of large intestine without perforation or abscess without bleeding; K59.00 Constipation, unspecified; Z86.73 Personal history of transient ischemic attack (TIA), and cerebral infarction without residual deficits; Z59.0 Homelessness; Z90.49 Acquired absence of other specified parts of digestive tract; Z90.710 Acquired absence of both cervix and uterus; Z91.19 Patient's noncompliance with other medical treatment and regimen; Z95.0 Presence of cardiac pacemaker; Z99.3 Dependence on wheelchair; Z87.01 Personal history of pneumonia (recurrent); Z87.440 Personal history of urinary (tract) infections; Z82.49 Family history of ischemic heart disease and other diseases of the circulatory system; Z88.6 Allergy status to analgesic agent
CPT/HCPCS: 36415; 70450; 71045; 71275; 72125; 74175; 78452; 80048; 80053; 80061; 81001; 82040; 82570; 83036; 83735; 84156; 84439; 84443; 84484; 85025; 87077; 87086; 87186; 93005; 93017; 93975; 99285; G0378; J1644; J2785; Q9967; A9502; C9898; J2270; J7030

== ENCOUNTER 2018-10-18 01:25 | Emergency (ER) | payer MEDICARE, MEDICAID ==
[~2018-10-18] VITALS: Ht 160 cm; Wt 71.3 kg
[~2018-10-18 01:25] MED LIST changes: +HYDR-3342 PO
[2018-10-18 01:34] VITALS: BP 146/60
[2018-10-18] MEDS ORDERED: ACETAMINOPHEN 325 MG TABLET PO ONE (02:00)
== END 2018-10-18 02:11 ==
LOC: ED 01:42
DX: G89.29 Other chronic pain (principal); R07.2 Precordial pain; I10 Essential (primary) hypertension; I48.91 Unspecified atrial fibrillation; Z86.73 Personal history of transient ischemic attack (TIA), and cerebral infarction without residual deficits; Z59.0 Homelessness
CPT/HCPCS: 93005; 99283